=== PATIENT | female | born 1965 | race Caucasian/White ===

== ENCOUNTER 2023-02-06 21:17 | Observation (INO) | payer BC, MEDICARE ==
[2023-02-06] MEDS ORDERED: SODIUM CHLORIDE 0.9% 1,000 ML IV STA (21:33)
--- NOTE | 2023-02-06 21:54 | ED ---
Chest Pain HPI - General Chief Complaint: Chest Pain Stated Complaint: Chest pain,sob Time Seen by Provider: 02/06/23 21:32 Source: patient, RN notes reviewed, old records reviewed Mode of arrival: ambulatory Limitations: no limitations - History of Present Illness Initial Comments: This is a 57-year-old female to the emergency department for evaluation of severe chest pain for 3 days but worsening today which causes her to the emergency department. Patient presents today again for evaluation of the pain being worse than it was the last 3 days. Pain started 3 days ago rating to her back rating to her shoulders has been significant. Today with some shortness of breath and pain as well. No trauma no fevers no cough no congestion no other complaints. Patient has relatively no medical history aside from surgical history with family does have significant history of heart disease MD Complaint: chest pain, other -: days(s) Pain Location: left chest, other Severity: severe Severity scale (1-10): 8 Consistency: constant Improves With: nothing Worsens With: nothing Anginal Symptoms: diaphoresis, dyspnea, sense of impending doom Other Symptoms: cough, palpitations Treatments Prior to Arrival: none - Related Data Home Medications Medication Instructions Recorded Confirmed Cyclobenzaprine [Flexeril] 10 mg PO DAILY@209902/06/23 02/06/23 Meloxicam [Mobic] 15 mg PO DAILY@209902/06/23 02/06/23 Naratriptan HCl [Amerge] 2.5 mg PO DAILY PRN 02/06/23 02/06/23 Venlafaxine HCl ER [Effexor Xr] 225 mg PO DAILY@209902/06/23 02/06/23 acetaZOLAMIDE [Acetazolamide] 250 mg PO DAILY PRN 02/06/23 02/06/23 oxyCODONE-APAP 7.5-325MG [Percocet 1 tab PO Q6HR PRN 02/06/23 02/06/23 7.5-325 mg] rOPINIRole HCL [Requip] 2 mg PO DAILY@209902/06/23 02/06/23 Allergies Allergy/AdvReac Type Severity Reaction Status Date / Time morphine Allergy Nausea & Verified 02/06/23 22:01 Vomiting Review of Systems ROS Statement: Those systems with pertinent positive or pertinent negative responses have been documented in the HPI. ROS Other: All systems not noted in ROS Statement are negative. EKG Findings - EKG Comments: EKG Findings:: EKG is sinus 78 [place] 190 QRS 88 QTc 460 - EKG Results: EKG: interpreted by KERRY Past Medical History Past Medical History: No Reported History History of Any Multi-Drug Resistant Organisms: None Reported Past Surgical History: Hysterectomy, Joint Replacement, Orthopedic Surgery Past Psychological History: Anxiety, Depression Smoking Status: Current every day smoker Past Alcohol Use History: None Reported Past Drug Use History: None Reported General Exam Limitations: no limitations General appearance: alert, in no apparent distress Head exam: Present: atraumatic, normocephalic, normal inspection Eye exam: Present: normal appearance, PERRL, EOMI. Absent: scleral icterus, conjunctival injection, periorbital swelling ENT exam: Present: normal exam, mucous membranes moist Neck exam: Present: normal inspection. Absent: tenderness, meningismus, lymphadenopathy Respiratory exam: Present: normal lung sounds bilaterally. Absent: respiratory distress, wheezes, rales, rhonchi, stridor Cardiovascular Exam: Present: regular rate, normal rhythm, normal heart sounds. Absent: systolic murmur, diastolic murmur, rubs, gallop, clicks GI/Abdominal exam: Present: soft, normal bowel sounds. Absent: distended, tenderness, guarding, rebound, rigid Extremities exam: Present: normal inspection, full ROM, normal capillary refill. Absent: tenderness, pedal edema, joint swelling, calf tenderness Back exam: Present: normal inspection Neurological exam: Present: alert, oriented X3, CN II-XII intact Psychiatric exam: Present: normal affect, normal mood Skin exam: Present: warm, dry, intact, normal color. Absent: rash Course Vital Signs 02/06/23 02/06/23 02/06/23 21:20 22:30 23:00 Temperature 97.7 F Pulse Rate 94 64 68 Respiratory 18 16 17 Rate Blood Pressure 167/103 158/91 O2 Sat by Pulse 98 99 98 Oximetry - Reevaluation(s) Reevaluation #1: 02/07/23 00:54 Medical records reviewed Reevaluation #2: 02/07/23 00:54 Patient symptoms unchanged Patient still with chest pain Reevaluation #3: 02/07/23 00:54 Patient informed results and questions are answered Reevaluation #4: 02/07/23 00:55 Was pt. sent in by a medical professional or institution (NEEMA Young, VICE PRESIDENT RESEARCH, urgent care, hospital, or half-way...) When possible be specific @ -no Did you speak to anyone other than the patient for history (EMS, parent, family, police, friend...)? What history was obtained from this source @ -no Did you review nursing and triage notes (agree or disagree)? Why? @ -agree Are old charts reviewed (outside hosp., previous admission, EMS record, old EKG, old radiological studies, urgent care reports/EKG's, half-way records)? Report findings @ -yes Differential Diagnosis (chest pain, altered mental status, abdominal pain women, abdominal pain men, vaginal bleeding, weakness, fever, dyspnea, syncope, headache, dizziness, GI bleed, back pain, seizure, CVA, palpatations, mental health, musculoskeletal)? @ -prior EKG interpreted by me (3pts min.). @ -yes X-rays interpreted by me (1pt min.). @ -yes CT interpreted by me (1pt min.). @ -no U/S interpreted by me (1pt. min.). @ -no What testing was considered but not performed or refused? (CT, X-rays, U/S, labs)? Why? @ -none What meds were considered but not given or refused? Why? @ -none Did you discuss the management of the patient with other professionals (professionals i.e. NEEMA Young, VICE PRESIDENT RESEARCH, lab, RT, psych nurse, social and political studies professor, trial lawyer, teacher, principal gifts officer, employment case manager)? Give summary @ -no Was smoking cessation discussed for >3mins.? @ -no Was critical care preformed (if so, how long)? @ -no Were there social determinants of health that impacted care today? How? (Homelessness, low income, unemployed, alcoholism, drug addiction, transportation, low edu. Level, literacy, decrease access to med. care, [facility], rehab)? @ -none Was there de-escalation of care discussed even if they declined (Discuss DNR or withdrawal of care, Hospice)? DNR status @ -no What co-morbidities impacted this encounter? (DM, HTN, Smoking, COPD, CAD, Cancer, CVA, ARF, Chemo, Hep., AIDS, mental health diagnosis, sleep apnea, morbid obesity)? @ -none Was patient admitted / discharged? Hospital course, mention meds given and route, prescriptions, significant lab abnormalities, going to OR and other pertinent info. @ - Undiagnosed new problem with uncertain prognosis? @ -no Drug Therapy requiring intensive monitoring for toxicity (Heparin, Nitro, Insulin, Cardizem)? @ -no Were any procedures done? @ -no Diagnosis/symptom? @ - Acute, or Chronic, or Acute on Chronic? @ -Acute Uncomplicated (without systemic symptoms) or Complicated (systemic symptoms)? @ -Complicated Side effects of treatment? @ -no Exacerbation, Progression, or Severe Exacerbation? @ -exacerbation Poses a threat to life or bodily function? How? (Chest pain, [place], [place], pneumonia, PE, COPD, DKA, ARF, appy, cholecystitis, CVA, Diverticulitis, Homicidal, Suicidal, threat to staff... and all critical care pts) @ -yes Reevaluation #5: 02/07/23 00:55 MDifferential Chest Pain: Stable Angina, Unstable Angina, STEMI, NSTEMI Aortic Dissection, Pneumothorax, Musculoskeletal, Esophageal Spasm GERD, Cholecystitis, Pancreatitis, Zoster, this is not meant to be an all-inclusive list. - Consultations Consultation #1: Spoke with sound were agreeable to admit this patient Chest Pain MDM - MDM 57 female DF for evaluation today. Patient Dese for evaluation regards to chest pain. Patient has no finding a cause of chest pain here in the ER will be admitted for chest pain observation with family history of heart disease and persistent chest pain for 4 days with continued chest pain here in the ER Disposition Clinical Impression: Chest pain Disposition: ADMITTED IP TO THIS HOSP Condition: Undetermined Is patient prescribed a controlled substance at d/c from ED?: No Referrals: Nonstaff,Physician [REFERRING] - 1-2 days Time of Disposition: 01:00
--- NOTE | 2023-02-06 22:00 | XR ---
EXAMINATION TYPE: XR chest 1V portable DATE OF EXAM: 02/06/2023 9:56 PM CLINICAL INDICATION:Female, 57 years old with history of chest pain; COMPARISON: None TECHNIQUE: XR chest 1V portable Frontal view of the chest. FINDINGS: Lungs/Pleura: There is no evidence of pleural effusion, focal consolidation, or pneumothorax. Pulmonary vascularity: Unremarkable. Heart/mediastinum: Cardiomediastinal silhouette is unremarkable. Musculoskeletal: No acute osseous pathology. Other findings: None IMPRESSION: No acute cardiopulmonary disease/process.
[2023-02-06 22:18] LABS: Basophils % (A) 0 %; Eosinophils # (A) 0.3 k/uL (0-0.7); Eosinophils % (A) 3 %; HCT 39.9 % (34.0-46.0); HGB 14.1 gm/dL (11.4-16.0); Lymphocytes # (A) 3.7 k/uL (1.0-4.8); Lymphocytes % (A) 43 %; MCH 31.9 pg (25.0-35.0); MCHC 35.3 g/dL (31.0-37.0); MCV 90.4 fL (80.0-100.0); Mean Platelet Volume 7.4; Monocytes # (A) 0.5 k/uL (0-1.0); Monocytes % (A) 6 %; Neutrophils % (A) 46 %; Platelet Count 252 k/uL (150-450); RBC 4.41 m/uL (3.80-5.40); RDW 12.3 % (11.5-15.5); WBC 8.5 k/uL (3.8-10.6)
[2023-02-06 22:34] LABS: ALT 23 U/L (4-34); AST 21 U/L (14-36); African American GFR (CKD) >90 (>60 ml/min/1.73 sqM); Albumin 4.4 g/dL (3.5-5.0); Alkaline Phosphatase 103 U/L (38-126); Anion Gap 12 mmol/L; Blood Urea Nitrogen 16 mg/dL (7-17); Calcium 9.8 mg/dL (8.4-10.2); Carbon Dioxide 21 mmol/L (22-30); Chloride 105 mmol/L (98-107); Glucose 107 mg/dL (74-99); Lipase 139 U/L (23-300); Magnesium 2.2 mg/dL (1.6-2.3); Non-African American GFR(CKD) >90 (>60 ml/min/1.73 sqM); Potassium 4.3 mmol/L (3.5-5.1); Sodium 138 mmol/L (137-145); Total Bilirubin 0.3 mg/dL (0.2-1.3); Total Protein 7.2 g/dL (6.3-8.2)
[2023-02-06 22:41] LABS: NT-Pro-B-Type Natriuretic Pept 49 pg/mL
[2023-02-06 22:53] LABS: INR 0.9 (<1.2); Partial Thromboplastin Time 24.8 sec (22.0-30.0); Prothrombin Time 9.5 sec (9.0-12.0)
[2023-02-06] MEDS ORDERED: LABETALOL 5 MG/ML VIAL MDV IVP STA (23:19)
[2023-02-06] MEDS ORDERED: HYDROmorphone 0.5 MG/0.5 ML SYRINGE IVP STA (23:19)
--- NOTE | 2023-02-07 00:13 | CT ---
EXAMINATION TYPE: CT angio chest CT DLP: 641 mGycm, Automated exposure control for dose reduction was used. DATE OF EXAM: 02/06/2023 11:58 PM COMPARISON: Chest radiograph from same day. CLINICAL INDICATION:Female, 57 years old with history of cp; TECHNIQUE/CONTRAST: CTA scan of the thorax is performed without and with IV Contrast, patient injected with 100 mL of Iso eugene 370, MIP images are created and reviewed these are created on a separate workstation.. FINDINGS: Pulmonary Artery: There is no evidence for a filling defect within the pulmonary vasculature to sugge st acute pulmonary embolism. The pulmonary artery is of normal size. Lungs/Pleura: No evidence of focal consolidation, pleural effusion or pneumothorax. Airway: Large airways are patent. Heart: Heart is within normal limits for size. Vasculature: No evidence of aortic aneurysm. Mediastinum: No gross evidence of adenopathy. Musculoskeletal: No acute osseous abnormalities Soft Tissues: Bilateral breast implants appear intact. Lower neck: No significant findings. Upper Abdomen: No significant findings. IMPRESSION: No evidence of pulmonary embolism.
[2023-02-07] MEDS ORDERED: NALOXONE 0.4 MG/ML 1 ML VIAL IV PRN (00:49)
[2023-02-07] MEDS ORDERED: ONDANSETRON 4 MG/2 ML VIAL IVP PRN (00:49)
[2023-02-07] MEDS ORDERED: SODIUM CHLORIDE 0.9% 1,000 ML IV SCH (01:00)
[2023-02-07] MEDS: HYDROmorphone 0.5 MG/0.5 ML SYRINGE IVP PRN ×3 (04:09→18:43)
[2023-02-07] MEDS ORDERED: ATORVASTATIN 80 MG TAB PO STA (04:34)
[2023-02-07] MEDS ORDERED: ASPIRIN 325 MG TAB PO STA (04:34)
--- NOTE | 2023-02-07 04:35 | P.HPIM ---
History of Present Illness H&P Date: 02/07/23 Patient is a 57-year-old female with a PMH of tobacco abuse and depression who presents to the emergency room with complaints of chest discomfort. Patient reports that over the past 3-4 days, she has been experiencing intermittent substernal pleuritic chest pressure and tightness, somewhat sharp in nature, 6 out of 10 in excellent intensity, occurring every hour for several minutes at a time, radiating into her back, with no alleviating or exacerbating features aside from the pleuritic nature of the pain. Does report that 2 nights ago she had woken up with the pain and had dizziness with nausea and a single episode of nonbloody emesis. Since then, she reports some associated lightheadedness without further nausea, vomiting and she also denied experiencing diaphoresis, or palpitations. Denied fever, chills, cough. In the emergency room, a chest CTA was unremarkable. EKG had revealed sinus rhythm at [address]/T-wave changes noted as reviewed by me. Laboratory evaluation revealed troponin less than 0.012. ED documentation reviewed and case discussed with ED provider. Review of systems: Pertinent positives and negatives as discussed in HPI, a complete review of systems was performed and all other systems are negative. Physical examination: Vital signs reviewed General: non toxic, no distress, appears at stated age, normal weight Derm: no unusual rashes/lesions, warm Head: atraumatic, normocephalic, symmetric Eyes: EOMI, no lid lag, anicteric sclera, pupils equal round reactive to light ENT: Nose and ears atraumatic Neck: No cervical lymphadenopathy, trachea midline, supple Mouth: no lip lesion, mucus membranes moist Cardiovascular: S1S2 reg, no murmur, positive dorsalis pedis pulse bilateral, no edema Lungs: CTA bilateral, no rhonchi, no rales, no accessory muscle use Abdominal: soft, nontender to palpation, no guarding Ext: muscle strength 5 out of 5 in all 4 extremities grossly, no gross muscle atrophy, no contractures, Neuro: CN II-XI grossly intact, no gross focal neuro deficits Psych: Alert, oriented, appropriate affect Assessment: Atypical chest pain, rule out ACS Tobacco abuse Imaging: In the emergency room, a chest CTA was unremarkable. EKG had revealed sinus rhythm at [address]/T-wave changes noted as reviewed by me. Data Review: Laboratory evaluation revealed troponin less than 0.012. Plan: Cardiology consulted Cardiac monitoring Trend troponin Continue with aspirin, statin DVT prophylaxis: Lovenox Subq The patient is admitted with an anticipated less than 2 midnight stay for evalu ation of chest pain CODE STATUS: Full Code Discussed with: Patient Anticipated discharge place: Home Past Medical History Past Medical History: No Reported History History of Any Multi-Drug Resistant Organisms: None Reported Past Surgical History: Hysterectomy, Joint Replacement, Orthopedic Surgery Additional Past Surgical History / Comment(s): bilateral hip replacement and "carpal tunnel sugery" Past Anesthesia/Blood Transfusion Reactions: No Reported Reaction Past Psychological History: Anxiety, Depression Smoking Status: Current every day smoker Past Alcohol Use History: None Reported Past Drug Use History: None Reported Medications and Allergies Home Medications Medication Instructions Recorded Confirmed Type Cyclobenzaprine [Flexeril] 10 mg PO DAILY@209902/06/23 02/06/23 History Meloxicam [Mobic] 15 mg PO DAILY@209902/06/23 02/06/23 History Naratriptan HCl [Amerge] 2.5 mg PO DAILY PRN 02/06/23 02/06/23 History Venlafaxine HCl ER [Effexor Xr] 225 mg PO DAILY@209902/06/23 02/06/23 History acetaZOLAMIDE [Acetazolamide] 250 mg PO DAILY PRN 02/06/23 02/06/23 History oxyCODONE-APAP 7.5-325MG [Percocet 1 tab PO Q6HR PRN 02/06/23 02/06/23 History 7.5-325 mg] rOPINIRole HCL [Requip] 2 mg PO DAILY@209902/06/23 02/06/23 History Allergies Allergy/AdvReac Type Severity Reaction Status Date / Time morphine Allergy Nausea & Verified 02/06/23 22:01 Vomiting Physical Exam Vitals: Vital Signs Temp Pulse Pulse Resp BP BP Pulse Ox 02/07/23 04:07 97.7 F 71 18 157/80 99 02/07/23 02:30 72 18 157/85 96 02/07/23 01:30 68 20 172/90 98 02/07/23 00:30 70 16 162/95 93 L 02/06/23 23:30 165/97 02/06/23 23:27 70 31 H 165/97 97 02/06/23 23:00 68 17 158/91 98 02/06/23 22:30 64 16 167/103 99 02/06/23 21:20 97.7 F 94 18 98 Intake and Output 02/06/23 02/06/23 02/07/23 14:59 22:59 06:59 Other: Weight 67.132 kg 67.132 kg Results CBC & Chem 7: 02/06/23 22:09 02/06/23 22:09 Labs: Abnormal Lab Results - Last 24 Hours (Table) 02/06/23 Range/Units 22:09 Carbon Dioxide 21 L (22-30) mmol/L Glucose 107 H (74-99) mg/dL Thrombosis Risk Factor Assmnt - Choose All That Apply Any of the Below Risk Factors Present?: Yes Each Factor Represents 1 point: Age 41-60 years Other Risk Factors: No Other congenital or acquired thrombophilia - If yes, enter type in comment: No Thrombosis Risk Factor Assessment Total Risk Factor Score: 1 Thrombosis Risk Factor Assessment Level: Low Risk
[2023-02-07] MEDS: ASPIRIN 81 MG PO SCH (08:36)
[2023-02-07] MEDS: ENOXAPARIN 40 MG/0.4 ML SYRINGE SQ SCH (08:36)
[2023-02-07] MEDS: lisinopriL 10 MG TAB PO SCH (09:48)
--- NOTE | 2023-02-07 10:53 | P.CRDCN ---
History of Present Illness History of present illness: HISTORY OF PRESENT ILLNESS: This is a 57-year-old female with a past medical history significant for hyperlipidemia, nicotine dependence, and chronic pain. Patient does not follow with a supervisor [employer]. We have been asked to see the patient in consultation for chest pain. Patient examined at the bedside. Patient states on she began having pain in the middle of her chest. She states she felt nauseated and had one episode of emesis. She states that she got up and went to the kitchen to make some tea but then felt like she was going to pass out so she went laid on the couch for a little bit. She states since that time she's been having some intermittent chest discomfort. She does report the chest pain is worse with deep inspiration and chest wall palpation. She denies any shortness of breath. Denies any dizziness or lightheadedness. She does report a history of syncope many years ago after her hysterectomy. She was found to have elevated blood pressures during hospitalization with a systolic in the 160s. The patient states she checks her blood pressure at home and it is usually well-controlled. She is a current cigarette smoker and smokes half a pack per day. She denies any drug use including marijuana or alcohol use. * EKG reveals sinus mechanism with no signs of acute ischemia * Chest xray negative for acute process * Chest CT: Negative for pulmonary embolism * Current home cardiac medications include none REVIEW OF SYSTEMS: At the time of my exam: CONSTITUTIONAL: Denies fever or chills. HEENT: Denies blurred vision, vision changes, or eye pain. Denies hemoptysis CARDIOVASCULAR: Denies chest pain. Denies orthopnea. Denies PND. Denies palpitations RESPIRATORY: Denies shortness of breath. GASTROINTESTINAL: Denies abdominal pain. Denies nausea or vomiting. HEMATOLOGIC: Denies bleeding disorders. GENITOURINARY: Denies any blood in urine. SKIN: Denies pruitis. Denies rash. PHYSICAL EXAM: VITAL SIGNS: Reviewed. GENERAL: Well-developed in no acute distress. HEENT: Head is normocephalic. Pupils are equal, round. Sclerae anicteric. Mucous membranes of the mouth are moist. Neck supple. No JVD or thyromegaly LUNGS: Respirations even and unlabored. Lungs essentially clear to auscultation bilaterally. HEART: Regular rate and rhythm. S1 and S2 heard. ABDOMEN: Soft. Nondistended. Nontender. EXTREMITIES: Normal range of motion. No clubbing or cyanosis. Peripheral pulses intact. No lower extremity edema NEUROLOGIC: Awake and alert. Oriented x 3. ASSESSMENT: Chest pain, troponins negative 2 Hyperlipidemia, diet-controlled per patient Hypertension Nicotine dependence, patient smokes half a pack per day Chronic pain with chronic opioid use PLAN: An acute coronary event has been ruled out Obtain 2-D echo to assess cardiac structure and function Continue aspirin 81 mg daily Decrease atorvastatin to 40 mg at night. Obtain lipid panel Add lisinopril 10 mg daily for optimal blood pressure control Nothing by mouth at midnight Patient to undergo stress echocardiogram tomorrow Further recommendations pending patient's course Nurse practitioner note has been reviewed by physician. Signing provider agrees with the documented findings, assessment, and plan of care. Past Medical History Past Medical History: No Reported History History of Any Multi-Drug Resistant Organisms: None Reported Past Surgical History: Hysterectomy, Joint Replacement, Orthopedic Surgery Additional Past Surgical History / Comment(s): bilateral hip replacement and "carpal tunnel sugery" Past Anesthesia/Blood Transfusion Reactions: No Reported Reaction Past Psychological History: Anxiety, Depression Smoking Status: Current every day smoker Past Alcohol Use History: None Reported Past Drug Use History: None Reported Medications and Allergies Home Medications Medication Instructions Recorded Confirmed Type Cyclobenzaprine [Flexeril] 10 mg PO DAILY@209902/06/23 02/06/23 History Meloxicam [Mobic] 15 mg PO DAILY@209902/06/23 02/06/23 History Naratriptan HCl [Amerge] 2.5 mg PO DAILY PRN 02/06/23 02/06/23 History Venlafaxine HCl ER [Effexor Xr] 225 mg PO DAILY@209902/06/23 02/06/23 History acetaZOLAMIDE [Acetazolamide] 250 mg PO DAILY PRN 02/06/23 02/06/23 History oxyCODONE-APAP 7.5-325MG [Percocet 1 tab PO Q6HR PRN 02/06/23 02/06/23 History 7.5-325 mg] rOPINIRole HCL [Requip] 2 mg PO DAILY@209902/06/23 02/06/23 History Allergies Allergy/AdvReac Type Severity Reaction Status Date / Time morphine Allergy Nausea & Verified 02/06/23 22:01 Vomiting Physical Exam Vitals: Vital Signs Temp Pulse Pulse Pulse Resp BP BP 02/07/23 08:33 97.9 F 76 18 157/85 02/07/23 04:41 71 02/07/23 04:07 97.7 F 71 18 157/80 02/07/23 02:30 72 18 157/85 02/07/23 01:30 68 20 172/90 02/07/23 00:30 70 16 162/95 02/06/23 23:30 165/97 02/06/23 23:27 70 31 H 165/97 02/06/23 23:00 68 17 158/91 02/06/23 22:30 64 16 167/103 02/06/23 21:20 97.7 F 94 18 Pulse Ox 02/07/23 08:33 99 02/07/23 04:41 02/07/23 04:07 99 02/07/23 02:30 96 02/07/23 01:30 98 02/07/23 00:30 93 L 02/06/23 23:30 02/06/23 23:27 97 02/06/23 23:00 98 02/06/23 22:30 99 02/06/23 21:20 98 Intake and Output 02/06/23 02/07/23 02/07/23 22:59 06:59 14:59 Intake Total 10 Balance 10 Intake: IV 10 Invasive Line 1 10 Other: # Voids 1 Weight 67.132 kg 67.132 kg Results 02/06/23 22:09 02/06/23 22:09 Cardiac Enzymes 02/06/23 02/06/23 02/07/23 Range/Units 22:09 22:09 03:49 AST 21 (14-36) U/L Troponin I <0.012 <0.012 (0.000-0.034) ng/mL Coagulation 02/06/23 Range/Units 22:09 PT 9.5 (9.0-12.0) sec APTT 24.8 (22.0-30.0) sec CBC 02/06/23 Range/Units 22:09 WBC 8.5 (3.8-10.6) k/uL RBC 4.41 (3.80-5.40) m/uL Hgb 14.1 (11.4-16.0) gm/dL Hct 39.9 (34.0-46.0) % Plt Count 252 (150-450) k/uL Comprehensive Metabolic Panel 02/06/23 Range/Units 22:09 Sodium 138 (137-145) mmol/L Potassium 4.3 (3.5-5.1) mmol/L Chloride 105 (98-107) mmol/L Carbon Dioxide 21 L (22-30) mmol/L BUN 16 (7-17) mg/dL Creatinine 0.52 (0.52-1.04) mg/dL Glucose 107 H (74-99) mg/dL Calcium 9.8 (8.4-10.2) mg/dL AST 21 (14-36) U/L ALT 23 (4-34) U/L Alkaline Phosphatase 103 (38-126) U/L Total Protein 7.2 (6.3-8.2) g/dL Albumin 4.4 (3.5-5.0) g/dL Current Medications Generic Name Dose Route Start Last Admin Trade Name Freq PRN Reason Stop Dose Admin Aspirin 81 mg 02/07/23 09:00 02/07/23 08:36 Aspirin 81 Mg PO 81 mg DAILY ENEIDA Administration Atorvastatin Calcium 80 mg 02/07/23 21:00 Atorvastatin 80 Mg Tab PO HS [facility] Enoxaparin Sodium 40 mg 02/07/23 09:00 02/07/23 08:36 Enoxaparin 40 Mg/0.4 Ml Syringe SQ 40 mg DAILY ENEIDA Administration Hydromorphone HCl 0.5 mg 02/07/23 00:49 02/07/23 08:36 Hydromorphone 0.5 Mg/0.5 Ml Syringe IVP 0.5 mg Q3HR PRN Administration Moderate Pain (Scale 4 to 6) Naloxone HCl 0.2 mg 02/07/23 00:49 Naloxone 0.4 Mg/Ml 1 Ml Vial IV Q2M PRN Opioid Reversal Ondansetron HCl 4 mg 02/07/23 00:49 Ondansetron 4 Mg/2 Ml Vial IVP Q8HR PRN Nausea And Vomiting Intake and Output 02/06/23 02/07/23 02/07/23 22:59 06:59 14:59 Intake Total 10 Balance 10 Intake: IV 10 Invasive Line 1 10 Other: # Voids 1 Weight 67.132 kg 67.132 kg 02/06/23 22:09 02/06/23 22:09
[2023-02-07] MEDS ORDERED: SUMAtriptan succinate 50 MG TAB PO PRN (12:15)
[2023-02-07] MEDS: oxyCODONE-APAP 7.5-325MG 1 EACH TAB PO PRN ×2 (13:25→19:58)
[2023-02-07] MEDS: ATORVASTATIN 40 MG TAB PO SCH (19:58)
[2023-02-07] MEDS ORDERED: acetaZOLAMIDE 250 MG TAB PO PRN (20:59)
[2023-02-07] MEDS ORDERED: VENLAFAXINE HCL ER 75 MG CAP PO SCH (21:00)
[2023-02-07] MEDS ORDERED: ATORVASTATIN 80 MG TAB PO SCH (21:00)
[2023-02-07] MEDS ORDERED: CYCLOBENZAPRINE 10 MG TAB PO SCH (21:00)
[2023-02-07 23:03] LABS: Chol/HDL Ratio 6.52 Ratio; LDL Cholesterol,Calculated 134.8 mg/dL (0.0-131.0)
[2023-02-07 23:38] VITALS: RESP 18
[2023-02-08] MEDS: oxyCODONE-APAP 7.5-325MG 1 EACH TAB PO PRN ×3 (03:18→16:44)
[2023-02-08] MEDS: ENOXAPARIN 40 MG/0.4 ML SYRINGE SQ SCH (08:20)
[2023-02-08] MEDS: lisinopriL 10 MG TAB PO SCH (10:35)
[2023-02-08] MEDS: ASPIRIN 81 MG PO SCH (10:35)
[2023-02-08 12:44] LABS: Basophils % (A) 0 %; Eosinophils # (A) 0.1 k/uL (0-0.7); Eosinophils % (A) 1 %; HCT 40.5 % (34.0-46.0); HGB 13.3 gm/dL (11.4-16.0); Lymphocytes # (A) 2.2 k/uL (1.0-4.8); Lymphocytes % (A) 30 %; MCH 30.9 pg (25.0-35.0); MCHC 32.7 g/dL (31.0-37.0); MCV 94.6 fL (80.0-100.0); Mean Platelet Volume 7.3; Monocytes # (A) 0.4 k/uL (0-1.0); Monocytes % (A) 6 %; Neutrophils # (A) 4.5 k/uL (1.3-7.7); Neutrophils % (A) 62 %; Platelet Count 227 k/uL (150-450); RBC 4.29 m/uL (3.80-5.40); RDW 12.5 % (11.5-15.5); WBC 7.3 k/uL (3.8-10.6)
[2023-02-08 13:09] LABS: ALT 21 U/L (4-34); AST 20 U/L (14-36); African American GFR (CKD) >90 (>60 ml/min/1.73 sqM); Albumin 4.2 g/dL (3.5-5.0); Alkaline Phosphatase 90 U/L (38-126); Anion Gap 9 mmol/L; Blood Urea Nitrogen 14 mg/dL (7-17); Calcium 9.6 mg/dL (8.4-10.2); Carbon Dioxide 25 mmol/L (22-30); Chloride 105 mmol/L (98-107); Glucose 104 mg/dL (74-99); Lipase 71 U/L (23-300); Non-African American GFR(CKD) >90 (>60 ml/min/1.73 sqM); Phosphorus 4.1 mg/dL (2.5-4.5); Potassium 4.8 mmol/L (3.5-5.1); Sodium 139 mmol/L (137-145); Total Bilirubin 0.3 mg/dL (0.2-1.3); Total Protein 6.8 g/dL (6.3-8.2)
--- NOTE | 2023-02-08 14:24 | P.PN ---
Subjective Progress Note Date: 02/08/23 HISTORY OF PRESENT ILLNESS: This is a 57-year-old female with a past medical history significant for hy perlipidemia, nicotine dependence, and chronic pain. Patient does not follow with a fire eater. We have been asked to see the patient in consultation for chest pain. Patient examined at the bedside. Patient states on she began having pain in the middle of her chest. She states she felt nauseated and had one episode of emesis. She states that she got up and went to the kitchen to make some tea but then felt like she was going to pass out so she went laid on the couch for a little bit. She states since that time she's been having some intermittent chest discomfort. She does report the chest pain is worse with deep inspiration and chest wall palpation. She denies any shortness of breath. Denies any dizziness or lightheadedness. She does report a history of syncope many years ago after her hysterectomy. She was found to have elevated blood pressures during hospitalization with a systolic in the 160s. The patient states she checks her blood pressure at home and it is usually well-controlled. She is a current cigarette smoker and smokes half a pack per day. She denies any drug use including marijuana or alcohol use. * EKG reveals sinus mechanism with no signs of acute ischemia * Chest xray negative for acute process * Chest CT: Negative for pulmonary embolism * Current home cardiac medications include none 02/08 Patient states that she is feeling okay today. She has completed her stress test report is pending. She still states she has some pressure in her chest but not like it was before. She is mostly feeling tired and sleepy today. No chest wall tenderness. She does have pain with deep breathing. PHYSICAL EXAM: VITAL SIGNS: Reviewed. GENERAL: Well-developed in no acute distress. HEENT: Head is normocephalic. Pupils are equal, round. Sclerae anicteric. Mucous membranes of the mouth are moist. Neck supple. No JVD or thyromegaly LUNGS: Respirations even and unlabored. Lungs essentially clear to auscultation bilaterally. HEART: Regular rate and rhythm. S1 and S2 heard. ABDOMEN: Soft. Nondistended. Nontender. EXTREMITIES: Normal range of motion. No clubbing or cyanosis. Peripheral pulses intact. No lower extremity edema NEUROLOGIC: Awake and alert. Oriented x 3. ASSESSMENT: Chest pain, troponins negative 3 Hyperlipidemia, diet-controlled per patient Hypertension Nicotine dependence, patient smokes half a pack per day Chronic pain with chronic opioid use PLAN: An acute coronary event has been ruled out Obtain 2-D echo to assess cardiac structure and function Continue aspirin 81 mg daily Continue atorvastatin 40 mg at night. Continue lisinopril 10 mg daily for optimal blood pressure control Patient is status post stress echocardiogram. If stress echocardiogram and echocardiogram are unremarkable, patient is cleared for discharge home. Further recommendations pending patient's course Nurse practitioner note has been reviewed by physician. Signing provider agrees with the documented findings, assessment, and plan of care. Objective - Vital Signs Vital signs: Vital Signs Temp 98.3 F 02/08/23 12:00 Pulse 53 L 02/08/23 12:00 Resp 18 02/08/23 12:00 BP 115/73 02/08/23 12:00 Pulse Ox 97 02/08/23 12:00 FiO2 21 02/07/23 08:54 Intake & Output 02/07/23 02/08/23 02/08/23 18:59 06:59 18:59 Intake Total 1138 Balance 1138 Weight 68.9 kg Intake: IV 20 Invasive Line 1 20 Oral 1118 Other: # Voids 3 - Labs CBC & Chem 7: 02/08/23 11:45 02/08/23 11:45 Labs: Abnormal Lab Results - Last 24 Hours (Table) 02/07/23 Range/Units 10:24 Triglycerides 287.00 H (0.00-149.00) mg/dL Cholesterol 227.00 H (0.00-200.00) mg/dL LDL Cholesterol, Calc 134.8 H (0.0-131.0) mg/dL VLDL Cholesterol, Calc 57.40 H (5.00-40.00) mg/dL HDL Cholesterol 34.80 L (40.00-60.00) mg/dL
--- NOTE | 2023-02-08 14:31 | CA ---
Transthoracic Echo Report Name: Allen Boone Age: 57 Gender: F : 1965 Exam Date: 02/08/2023 09:39 Exam Location: [place] [facility] Ht (in): 65 Wt (lb): 148 Ordering Physician: Josette Beebe Attending/Referring Phys: [id number], Abiel Master Electrician Carmel Yanez [facility] Procedure CPT: Indications: LV function, CP Cardiac Hx: Technical Quality: Fair Contrast 1: Total Dose (mL): Contrast 2: Total Dose (mL): MEASUREMENTS (Male / Female) Normal Values 2D ECHO LV Diastolic Diameter PLAX 4.1 cm 4.2 - 5.9 / 3.9 - 5.3 cm LV Systolic Diameter PLAX 2.7 cm IVS Diastolic Thickness 1.1 cm 0.6 - 1.0 / 0.6 - 0.9 cm LVPW Diastolic Thickness 1.2 cm 0.6 - 1.0 / 0.6 - 0.9 cm LV Relative Wall Thickness 0.6 Ascending Aorta Diameter 3.3 cm M-MODE Aortic Root Diameter MM 3.1 cm LA Systolic Diameter MM 3.5 cm LA Ao Ratio MM 1.1 AV Cusp Separation MM 2.0 cm DOPPLER AV Peak Velocity 78.5 cm/s AV Peak Gradient 2.5 mmHg AV Mean Velocity 60.2 cm/s AV Mean Gradient 1.6 mmHg AV Velocity Time Integral 14.6 cm LVOT Peak Velocity 74.3 cm/s LVOT Peak Gradient 2.2 mmHg LVOT Velocity Time Integral 14.2 cm Mitral E Point Velocity 39.5 cm/s Mitral A Point Velocity 51.3 cm/s Mitral E to A Ratio 0.8 MV Deceleration Time 195.4 ms LV E' Lateral Velocity 7.5 cm/s Mitral E to LV E' Lateral Ratio 5.3 LV E' Septal Velocity 5.6 cm/s Mitral E to LV E' Septal Ratio 7.1 Right Atrial Pressure 3.0 mmHg FINDINGS Left Ventricle Mildly increased left ventricular wall thickness. Left ventricular cavity size normal. Normal left ventricular systolic function with no obvious regional wall motion abnormalities. Left ventricular ejection fraction is estimated at 55- 60%. Right Ventricle Normal right ventricular size. Unable to estimate the right ventricular systolic pressure. Right Atrium Normal right atrial size. Left Atrium Normal left atrial size. Mitral Valve Structurally normal mitral valve. Mitral valve thickened. No mitral regurgitation. Aortic Valve Trileaflet aortic valve. No aortic valve stenosis or regurgitation. Tricuspid Valve Structurally normal tricuspid valve. No tricuspid regurgitation. Pulmonic Valve Pulmonic valve not well visualized. Trace pulmonic regurgitation. Pericardium No pericardial effusion. Aorta Normal size aortic root and proximal ascending aorta. CONCLUSIONS LVH with preserved systolic function Previewed by: Dr. Nando Butts MD (Electronically Signed) Final Date: 08 February 2023 14:29
[2023-02-08 16:34] VITALS: BP 131/82; PULSE 85; TEMP 98.4
--- NOTE | 2023-02-08 18:07 | CA ---
Stress Echo Report Allen Boone Age: 57 Gender: F : 1965 Exam Date: 02/08/2023 09:49 Exam Location: [place] [facility] Ht (in): 65 Wt (lb): 151 Ordering Physician: Josette Beebe Referring Physician: [id number] Animal Physiologist: Carmel Yanez [facility] Technologist Procedure CPT: Indication: CP ICD-9 Codes: Rhythm: Patient History: Cardiac Medications: SEE CHART Medications in past 24 hours: Contrast: N/A Stress Results Protocol: Vamshi Total dose(mL): Exercise Duration (min:sec): 7:[address] Depression (mm): Angina Score: Hewitt Score: METS: 9.1 Resting HR: 93 Resting BP: 135 / 94 Peak HR: 146 Peak BP: 171 / 66 Max Predicted HR: 165 88 % Max Predicted HR Target HR: 140 Double Product: 87392 Stress Summary: BP Response: Reason for Termination: Reached target heart rate or work-load Cardiac Symptoms: SHORTNESS OF BREATH ECG Analysis Resting ECG: Stress ECG: Arrhythmia: Echo Analysis Resting Echo: Peak Echo Analysis: MEASUREMENTS (Male/Female) Normal Values CONCLUSIONS Average exercise capacity No ECG or echocardiographic evidence for ischemia Dr. Nando Butts MD (Electronically Signed) Final Date: 08 February 2023 18:07
[2023-02-08] MEDS: ATORVASTATIN 40 MG TAB PO SCH (18:43)
--- NOTE | 2023-02-08 18:54 | P.DS ---
Providers Date of admission: 02/07/23 00:49 Expected date of discharge: 02/08/23 Attending physician: Michael Mansfield MD Consults: 02/07/23 00:49 Consult Physician Routine Consulting Provider: Demian Brunner Consult Reason/Comments: cp Do you want consulting provider notified?: Yes Primary care physician: Florencio James MD Hospital Course: Discharge Diagnosis: Chest pain, acute coronary event ruled out. Hypertensive urgency, patient was started on lisinopril 10 mg daily and blood pressure is much better controlled. Hyperlipidemia with hypertriglyceridemia, patient discharged home on atorvastatin 40 mg daily. Hospital Course: Patient is a pleasant 57-year-old female with a past medical history of nicotine dependence and depression. She presented to the emergency department on 02/07/23 with a chief complaint of chest pain/discomfort. She underwent full evaluation in the emergency department. Vital signs upon arrival showing elevated blood pressure 167/103, heart rate 64, respiratory rate 16, temp 97.7F, SpO2 of 99% on room air. EKG was completed showing normal sinus rhythm at 78 bpm with no noted T wave or ST abnormality showing no signs of acute ischemia upon personal review and interpretation. Chest x-ray completed and negative for acute cardiopulmonary process. CTA chest completed negative for pulmonary emboli. Labs completed and reviewed. CBC and coagulation profile, and CMP were unremarkable. D-dimer negative at 0.30. Troponin negative at less than 0.012 with proBNP of 49. Patient was admitted under cardiac observation unit to our services. Cardiology was consulted. Troponins trended overnight all negative at less than 0.0123 draws. Hemoglobin A1c resulting in 5.7%. Lipid profile showing elevated triglycerides of 287, elevated cholesterol of 227, elevated LDL of 134.8, elevated VLDL of 57.40, and low HDL of 34.8. Patient reported for re solution of previous reported chest pain/discomfort. She was evaluated by cardiology recommending patient undergo stress testing. Echocardiogram completed revealing preserved EF of 55-60% with mild LVH otherwise no valvular or structural abnormalities reported. Exercise Stress test completed with reports of average exercise capacity and no ECG or echocardiographic evidence for ischemia. Patient cleared from cardiac perspective for discharge at this time. Medically, patient remains free from any complaints or concerns and is eager to return home. She was started on lisinopril 10 mg daily along with atorvastatin 40 mg daily. Blood pressure is much better controlled since starting lisinopril 10 mg daily. Upon discharge blood pressure 131/82, heart rate 85, respiratory rate 18, temp 98.4F, SpO2 of 97% on room air. Patient is medically stable for discharge and to follow up outpatient with PCP in 1-2 days and with sole sewer hand and 1 week. Physical exam: Patient seen and examined at bedside and reports being free from any further episodes of chest pain/discomfort or any other complaints at this time. Vital signs reviewed and stable. General: Nontoxic, no distress and appears stated age. Derm: Skin warm and dry, normal coloration for ethnicity. Head: Atraumatic, normocephalic and symmetric. Eyes: EOMs intact, no lid lag, and anicteric sclera Mouth: no lip lesions, mucus membranes moist Cardiovascular: regular rate and rhythm with normal S1S2, no murmur, positive posterior tibial pulses bilaterally, and cap refill < 2 seconds. Lungs: Respirations even, regular, and unlabored on room air. Lungs CTA bilaterally, no rhonchi, no rales, no wheezing, and no accessory muscle usage. Abdominal: soft, nontender to palpation, no guarding, no appreciable organomegaly Ext: ROM intact. No gross muscle atrophy, no edema, no contractures Neuro: Speech clear, face symmetrical and CN II-XII grossly intact with no noted focal neuro deficits Psych: Alert and oriented to person, place, time, and situation. Appropriate and pleasant affect. A total of 33 minutes of time were spent preparing this complex discharge summary. Pt was discharged on 02/08/23 at 6:42 PM. Patient was seen independently by Nurse Practitioner. This document was prepared using [employer] dictation software. Please allow for errors in hardness inspector while rare they do occur. Rishi Redding NP rendered care for this patient independently, reviewed the findings and plan as documented in the note above. I did not physically speak with or examine the patient on this date. Patient Condition at Discharge: Stable Plan - Discharge Summary Discharge Rx Participant: No New Discharge Prescriptions: New Atorvastatin [Lipitor] 40 mg PO HS 30 Days #30 tab lisinopriL [Zestril] 10 mg PO DAILY 30 Days #30 tab Continue Venlafaxine HCl ER [Effexor XR] 225 mg PO DAILY@2100 rOPINIRole HCL [Requip] 2 mg PO DAILY@2100 oxyCODONE-APAP 7.5-325MG [Percocet 7.5-325 mg] 1 tab PO Q6HR PRN PRN Reason: Pain acetaZOLAMIDE [Acetazolamide] 250 mg PO DAILY PRN PRN Reason: Edema Meloxicam [Mobic] 15 mg PO DAILY@2099 Cyclobenzaprine [Flexeril] 10 mg PO DAILY@2099 Naratriptan HCl [Amerge] 2.5 mg PO DAILY PRN PRN Reason: Migraine Headache Discharge Medication List Cyclobenzaprine [Flexeril] 10 mg PO DAILY@209902/06/23 [History] Meloxicam [Mobic] 15 mg PO DAILY@209902/06/23 [History] Naratriptan HCl [Amerge] 2.5 mg PO DAILY PRN 02/06/23 [History] Venlafaxine HCl ER [Effexor XR] 225 mg PO DAILY@209902/06/23 [History] acetaZOLAMIDE [Acetazolamide] 250 mg PO DAILY PRN 02/06/23 [History] oxyCODONE-APAP 7.5-325MG [Percocet 7.5-325 mg] 1 tab PO Q6HR PRN 02/06/23 [History] rOPINIRole HCL [Requip] 2 mg PO DAILY@209902/06/23 [History] Atorvastatin [Lipitor] 40 mg PO HS 30 Days #30 tab 02/08/23 [Rx] lisinopriL [Zestril] 10 mg PO DAILY 30 Days #30 tab 02/08/23 [Rx] Follow up Appointment(s)/Referral(s): Nando Butts MD [STAFF PHYSICIAN] - 1 Week (please call to set up appointment ) Nonstaff,Physician [REFERRING] - 1-2 days Patient Instructions/Handouts: Chest Pain (DC) Activity/Diet/Wound Care/Special Instructions: Activity: As tolerated. Take breaks as needed. Diet: Heart healthy and carb consistent diet. Avoid salts, or foods with hidden salts such as canned or boxed foods and frozen dinners. Extra salt makes your heart work harder and traps the fluid in your body for longer. Special Instructions: Take all of your medications as directed and remember to keep all of your doctor's appointments and follow-up as needed. Thank you for allowing us to participate in your care, it was truly a pleasure having you for our patient!!! Discharge Disposition: HOME SELF-CARE
== END 2023-02-08 18:55 | disposition home or self-care (01) ==
LOC: EC 21:17 → 6NMEDSUR 02-07 00:49 → 3SCARD 02-07 02:14
PROVIDERS: ADMIT Internal Medicine; ATTEND Internal Medicine
DX: R07.89 Other chest pain (principal); R06.02 Shortness of breath; I16.0 Hypertensive urgency; F17.210 Nicotine dependence, cigarettes, uncomplicated; F41.9 Anxiety disorder, unspecified; F32.A Depression, unspecified; Z79.1 Long term (current) use of non-steroidal anti-inflammatories (NSAID); Z79.899 Other long term (current) drug therapy; Z79.891 Long term (current) use of opiate analgesic; Z96.643 Presence of artificial hip joint, bilateral; G89.29 Other chronic pain; E78.1 Pure hyperglyceridemia; Z90.710 Acquired absence of both cervix and uterus
CPT/HCPCS: 96365; 96366; 96372 ×2; 99285; 36415; 94760 ×2; 93005; 93306; 93351; 85379; 83880; 80061; 80053 ×2; 83690 ×2; 83735 ×2; 84100; 84484 ×2; 85025 ×2; 85610; 85730; 83036; 71045; 71275; G0378 ×3; J1650 ×2; J1170; Q9967; J1920

== ENCOUNTER 2024-10-11 09:58 | Observation (INO) | payer BC, MEDICARE ==
[2024-10-11] MEDS: SODIUM CHLORIDE 0.9% 1,000 ML IV ONE (10:39)
[2024-10-11] MEDS: HYDROmorphone 0.5 MG/0.5 ML SYRINGE IVP STA ×3 (10:41→13:09)
[2024-10-11] MEDS: ONDANSETRON 4 MG/2 ML VIAL IVP STA (10:41)
[2024-10-11 11:13] LABS: ALT 21 U/L (4-34); AST 21 U/L (14-36); African American GFR (CKD) >90 (>60 ml/min/1.73 sqM); Albumin 5.1 g/dL (3.5-5.0); Alkaline Phosphatase 128 U/L (38-126); Anion Gap 14 mmol/L; Blood Urea Nitrogen 13 mg/dL (7-17); Calcium 10.7 mg/dL (8.4-10.2); Carbon Dioxide 23 mmol/L (22-30); Chloride 101 mmol/L (98-107); Glucose 111 mg/dL (74-99); Lipase 67 U/L (23-300); Non-African American GFR(CKD) >90 (>60 ml/min/1.73 sqM); Potassium 4.6 mmol/L (3.5-5.1); Sodium 138 mmol/L (137-145); Total Bilirubin 0.5 mg/dL (0.2-1.3); Total Protein 8.3 g/dL (6.3-8.2)
[2024-10-11 11:16] LABS: Basophils # (A) 0.04 10*3/uL (0.00-0.10); Basophils % (A) 0.2 %; Eosinophils # (A) 0.01 10*3/uL (0.04-0.35); Eosinophils % (A) 0.1 %; HCT 45.1 % (37.2-46.3); HGB 15.8 g/dL (12.0-15.0); Lymphocytes # (A) 3.24 10*3/uL (0.90-5.00); Lymphocytes % (A) 19.9 %; MCH 29.9 pg (27.0-32.0); MCV 85.4 fL (80.0-97.0); Mean Platelet Volume 9.1 fL (9.5-12.2); Monocytes # (A) 1.04 10*3/uL (0.20-1.00); Monocytes % (A) 6.4 %; Neutrophils # (A) 11.94 10*3/uL (1.80-7.70); Neutrophils % (A) 73.1 %; Platelet Count 408 10*3/uL (140-440); RBC 5.28 10*6/uL (4.10-5.20); RDW 12.3 % (11.5-14.5); WBC 16.32 10*3/uL (4.50-10.00)
--- NOTE | 2024-10-11 11:40 | ED ---
Abdominal Pain HPI - General Chief Complaint: Abdominal Pain Stated Complaint: abd pain, NV Time Seen by Provider: 10/11/24 10:02 Source: patient, family, RN notes reviewed Mode of arrival: ambulatory Limitations: no limitations - History of Present Illness Initial Comments: 58-year-old female presents emergency department complaint of right upper quadra nt abdominal pain, epigastric pain. Patient states that started 3 days ago states initially thought it would pass but has slightly worsened. She states she cannot tolerate the pain anymore nothing makes the pain feel better or worse she has not with nausea without vomiting no change in bowel habits no dysuria. - Related Data Home Medications Medication Instructions Recorded Confirmed Cyclobenzaprine [Flexeril] 10 mg PO DAILY@209902/06/23 02/06/23 Meloxicam [Mobic] 15 mg PO DAILY@209902/06/23 02/06/23 Naratriptan HCl [Amerge] 2.5 mg PO DAILY PRN 02/06/23 02/06/23 Venlafaxine HCl ER [Effexor XR] 225 mg PO DAILY@209902/06/23 02/06/23 acetaZOLAMIDE [Acetazolamide] 250 mg PO DAILY PRN 02/06/23 02/06/23 oxyCODONE-APAP 7.5-325MG [Percocet 1 tab PO Q6HR PRN 02/06/23 02/06/23 7.5-325 mg] rOPINIRole HCL [Requip] 2 mg PO DAILY@209902/06/23 02/06/23 Previous Rx's Medication Instructions Recorded Atorvastatin [Lipitor] 40 mg PO HS 30 Days #30 tab 02/08/23 lisinopriL [Zestril] 10 mg PO DAILY 30 Days #30 tab 02/08/23 Allergies Allergy/AdvReac Type Severity Reaction Status Date / Time morphine Allergy Nausea & Verified 02/06/23 22:01 Vomiting Review of Systems ROS Statement: Those systems with pertinent positive or pertinent negative responses have been documented in the HPI. ROS Other: All systems not noted in ROS Statement are negative. Past Medical History Past Medical History: No Reported History Additional Past Medical History / Comment(s): chronic back pain History of Any Multi-Drug Resistant Organisms: None Reported Past Surgical History: Hysterectomy, Joint Replacement, Orthopedic Surgery Additional Past Surgical History / Comment(s): bilateral hip replacement and "carpal tunnel sugery" Past Anesthesia/Blood Transfusion Reactions: No Reported Reaction Past Psychological History: Anxiety, Depression Smoking Status: Current every day smoker Past Alcohol Use History: None Reported Past Drug Use History: None Reported General Exam Limitations: no limitations General appearance: alert, in no apparent distress Head exam: Present: atraumatic, normocephalic, normal inspection Eye exam: Present: normal appearance, PERRL, EOMI. Absent: scleral icterus, conjunctival injection, periorbital swelling ENT exam: Present: normal exam, normal oropharynx, mucous membranes moist Neck exam: Present: normal inspection, full ROM. Absent: tenderness, meningismus, lymphadenopathy Respiratory exam: Present: normal lung sounds bilaterally. Absent: respiratory distress, wheezes, rales, rhonchi, stridor Cardiovascular Exam: Present: normal rhythm, tachycardia, normal heart sounds. Absent: systolic murmur, diastolic murmur, rubs, gallop, clicks GI/Abdominal exam: Present: soft, tenderness, normal bowel sounds. Absent: distended, guarding, rebound, rigid Back exam: Absent: CVA tenderness (R), CVA tenderness (L) Course Vital Signs 10/11/24 10:15 Temperature 98 F Pulse Rate 119 H Respiratory 20 Rate Blood Pressure 149/94 O2 Sat by Pulse 98 Oximetry Medical Decision Making - Medical Decision Making Was pt. sent in by a medical professional or institution (NEEMA Young, SPECIALTY DEVELOPMENT CONSULTANT, urgent care, hospital, or shelter...) When possible be specific @ -No Did you speak to anyone other than the patient for history (EMS, parent, family, police, friend...)? What history was obtained from this source @ -No Did you review nursing and triage notes (agree or disagree)? Why? @ -I reviewed and agree with nursing and triage notes Were old charts reviewed (outside hosp., previous admission, EMS record, old EKG, old radiological studies, urgent care reports/EKG's, shelter records)? Report findings @ -No old charts were reviewed Differential Diagnosis (chest pain, altered mental status, abdominal pain women, abdominal pain men, vaginal bleeding, weakness, fever, dyspnea, syncope, headache, dizziness, GI bleed, back pain, seizure, CVA, palpatations, mental health, musculoskeletal)? @ -Differential Abdominal Pain Women: Appendicitis, Cholecystitis, diverticulosis, ischemic bowel, pancreatitis, hepatitis, UTI, gastroenteritis, AAA, incarcerated hernia, bowel obstruction, constipation, inflammatory bowel, hepatitis, peptic ulcer disease, splenic infarction, perforated viscus, vulvitis, ovarian torsion, PID, kidney stone, p lacenta abruption, this is not meant to be an all-inclusive list EKG interpreted by me (3pts min.). @ -None X-rays interpreted by me (1pt min.). @ -None done CT interpreted by me (1pt min.). @ -CT abdomen pelvis showed no acute intra-abdominal process, chronic back changes, diverticulosis U/S interpreted by me (1pt. min.). @ -Ultrasound gallbladder negative for acute process What testing was considered but not performed or refused? (CT, X-rays, U/S, labs)? Why? @ -None What meds were considered but not given or refused? Why? @ -None Did you discuss the management of the patient with other professionals (professionals i.e. , PA, SPECIALTY DEVELOPMENT CONSULTANT, lab, RT, psych nurse, director of social media marketing, pcat instructor, teacher, parking officer, counseling case manager)? Give summary @ -Dr. Knutson regarding patient's symptoms, CT and ultrasound findings laboratory studies recommends admission no antibiotics at this time repeat exams laboratory studies and medicine discussed with Dr. Díaz Was smoking cessation discussed for >3mins.? @ -No Was critical care preformed (if so, how long)? @ -No Were there social determinants of health that impacted care today? How? (Homelessness, low income, unemployed, alcoholism, drug addiction, transpor tation, low edu. Level, literacy, decrease access to med. care, retirement, rehab)? @ -No Was there de-escalation of care discussed even if they declined (Discuss DNR or withdrawal of care, Hospice)? DNR status @ -No What co-morbidities impacted this encounter? (DM, HTN, Smoking, COPD, CAD, Cancer, CVA, ARF, Chemo, Hep., AIDS, mental health diagnosis, sleep apnea, morbid obesity)? @ -None Was patient admitted / discharged? Hospital course, mention meds given and route, prescriptions, significant lab abnormalities, going to OR and other pertinent info. @ -Admitted patient has intractable abdominal pain is required several doses of pain meds with worsening symptoms. Patient does have significant leukocytosis, lactic acidosis tachycardia. Patient be admitted for repeat serial exams and laboratory studies. Undiagnosed new problem with uncertain prognosis? @ -No Drug Therapy requiring intensive monitoring for toxicity (Heparin, Nitro, Insulin, Cardizem)? @ -No Were any procedures done? @ -No Diagnosis/symptom? @ -Intractable abdominal pain, leukocytosis lactic acidosis Acute, or Chronic, or Acute on Chronic? @ -Acute Uncomplicated (without systemic symptoms) or Complicated (systemic symptoms)? @ -Complicated Side effects of treatment? @ -No Exacerbation, Progression, or Severe Exacerbation? @ -No Poses a threat to life or bodily function? How? (Chest pain, USA, DC, pneumonia, PE, COPD, DKA, ARF, appy, cholecystitis, CVA, Diverticulitis, Homicidal, Suicidal, threat to staff... and all critical care pts) @ -No - Lab Data Result diagrams: 10/11/24 10:36 10/11/24 10:36 Lab Results 10/11/24 10/11/24 10/11/24 Range/Units 10:36 10:36 10:36 WBC 16.32 H (4.50-10.00) 10*3/uL RBC 5.28 H (4.10-5.20) 10*6/uL Hgb 15.8 H (12.0-15.0) g/dL Hct 45.1 (37.2-46.3) % MCV 85.4 (80.0-97.0) fL MCH 29.9 (27.0-32.0) pg MCHC 35.0 (32.0-37.0) g/dL Plt Count 408 (140-440) 10*3/uL MPV 9.1 L (9.5-12.2) fL Immature Gran % (Auto) 0.3 % Neutrophils % 73.1 % Lymphocytes % 19.9 % Monocytes % 6.4 % Eosinophils % 0.1 % Basophils % 0.2 % Immature Gran # 0.05 H (0.00-0.04) 10*3/uL Neutrophils # 11.94 H (1.80-7.70) 10*3/uL Lymphocytes # 3.24 (0.90-5.00) 10*3/uL Monocytes # 1.04 H (0.20-1.00) 10*3/uL Eosinophils # 0.01 L (0.04-0.35) 10*3/uL Basophils # 0.04 (0.00-0.10) 10*3/uL Sodium 138 (137-145) mmol/L Potassium 4.6 (3.5-5.1) mmol/L Chloride 101 (98-107) mmol/L Carbon Dioxide 23 (22-30) mmol/L Anion Gap 14 mmol/L BUN 13 (7-17) mg/dL Creatinine 0.52 (0.52-1.04) mg/dL Est GFR (CKD-EPI)AfAm >90 (>60 ml/min/1.73 sqM) Est GFR (CKD-EPI)NonAf >90 (>60 ml/min/1.73 sqM) Glucose 111 H (74-99) mg/dL Lactic Ac Sepsis Rflx Plasma Lactic Acid Tyler 2.2 H* (0.7-2.0) mmol/L Calcium 10.7 H (8.4-10.2) mg/dL Total Bilirubin 0.5 (0.2-1.3) mg/dL AST 21 (14-36) U/L ALT 21 (4-34) U/L Alkaline Phosphatase 128 H (38-126) U/L Total Protein 8.3 H (6.3-8.2) g/dL Albumin 5.1 H (3.5-5.0) g/dL Lipase 67 (23-300) U/L Urine Color Urine Appearance (Clear) Urine pH (5.0-8.0) Ur Specific [place] (1.001-1.035) Urine Protein (Negative) Urine Glucose (UA) (Negative) Urine Ketones (Negative) Urine Blood (Negative) Urine Nitrite (Negative) Urine Bilirubin (Negative) Urine Urobilinogen (<2.0) mg/dL Ur Leukocyte Esterase (Negative) Urine RBC (0-5) /hpf Urine WBC (0-5) /hpf Ur Squamous Epith Cells (0-4) /hpf Urine Bacteria (None) /hpf 10/11/24 10/11/24 Range/Units 11:19 11:57 WBC (4.50-10.00) 10*3/uL RBC (4.10-5.20) 10*6/uL Hgb (12.0-15.0) g/dL Hct (37.2-46.3) % MCV (80.0-97.0) fL MCH (27.0-32.0) pg MCHC (32.0-37.0) g/dL Plt Count (140-440) 10*3/uL MPV (9.5-12.2) fL Immature Gran % (Auto) % Neutrophils % % Lymphocytes % % Monocytes % % Eosinophils % % Basophils % % Immature Gran # (0.00-0.04) 10*3/uL Neutrophils # (1.80-7.70) 10*3/uL Lymphocytes # (0.90-5.00) 10*3/uL Monocytes # (0.20-1.00) 10*3/uL Eosinophils # (0.04-0.35) 10*3/uL Basophils # (0.00-0.10) 10*3/uL Sodium (137-145) mmol/L Potassium (3.5-5.1) mmol/L Chloride (98-107) mmol/L Carbon Dioxide (22-30) mmol/L Anion Gap mmol/L BUN (7-17) mg/dL Creatinine (0.52-1.04) mg/dL Est GFR (CKD-EPI)AfAm (>60 ml/min/1.73 sqM) Est GFR (CKD-EPI)NonAf (>60 ml/min/1.73 sqM) Glucose (74-99) mg/dL Lactic Ac Sepsis Rflx Y Plasma Lactic Acid Tyler (0.7-2.0) mmol/L Calcium (8.4-10.2) mg/dL Total Bilirubin (0.2-1.3) mg/dL AST (14-36) U/L ALT (4-34) U/L Alkaline Phosphatase (38-126) U/L Total Protein (6.3-8.2) g/dL Albumin (3.5-5.0) g/dL Lipase (23-300) U/L Urine Color Colorless Urine Appearance Clear (Clear) Urine pH 6.5 (5.0-8.0) Ur Specific [place] 1.006 (1.001-1.035) Urine Protein Trace H (Negative) Urine Glucose (UA) Negative (Negative) Urine Ketones Negative (Negative) Urine Blood Large H (Negative) Urine Nitrite Negative (Negative) Urine Bilirubin Negative (Negative) Urine Urobilinogen <2.0 (<2.0) mg/dL Ur Leukocyte Esterase Negative (Negative) Urine RBC 7 H (0-5) /hpf Urine WBC 2 (0-5) /hpf Ur Squamous Epith Cells 3 (0-4) /hpf Urine Bacteria Rare H (None) /hpf Disposition Clinical Impression: Intractable abdominal pain, Leukocytosis Disposition: ADMITTED IP TO THIS HOSP Condition: Fair Referrals: Florencio James MD [Primary Care Provider] - 1-2 days Time of Disposition: 14:12
--- NOTE | 2024-10-11 11:46 | US ---
EXAMINATION TYPE: US gallbladder DATE OF EXAM: 10/11/2024 COMPARISON: CT 02/06/2023 CLINICAL INDICATION: Female, 58 years old with history of pain; Abdominal pain x3 days TECHNIQUE: Grayscale and color Doppler imaging of the right upper quadrant. FINDINGS: EXAM MEASUREMENTS: Liver Length: 14.2 cm Gallbladder Wall: 0.2 cm CBD: 0.4 cm, color Doppler imaging was utilized to isolate the common bile duct for measurement. Right Kidney: 11.0 x 4.8 x 4.9 cm HOSPITALITY COORDINATOR NOTES: Pancreas: portions visualized wnl, tail obscured by overlying bowel gas Liver: wnl, increased echogenicity Gallbladder: wnl, no stones seen Evidence for sonographic Khanna's sign: No CBD: wnl Right Kidney: No hydronephrosis or masses seen Exam limited by overlying bowel gas. IMPRESSION: Hepatic steatosis without suspicious observation. [facility], , 10/11/2024 11:44 AM
[2024-10-11 12:21] LABS: Appearance,Urine Clear (Clear); Bacteria,Urine Rare /hpf; Bilirubin,Urine Negative (Negative); Blood,Urine Large (Negative); Color,Urine Colorless; Glucose,Urine (UA) Negative (Negative); Ketones,Urine Negative (Negative); Leukocyte Esterase,Urine Negative (Negative); Nitrite,Urine Negative (Negative); PH, Urine 6.5 (5.0-8.0); Protein,Urine Trace (Negative); RBC,Urine 7 /hpf (0-5); Specific Gravity,Urine 1.006 (1.001-1.035); Squamous Epithelial Cell,Urine 3 /hpf (0-4); Urobilinogen,Urine <2.0 mg/dL (<2.0); WBC,Urine 2 /hpf (0-5)
[2024-10-11] MEDS: KETOROLAC 15 MG/ML 1 ML VIAL IVP STA (13:09)
--- NOTE | 2024-10-11 13:11 | CT ---
EXAMINATION TYPE: CT abdomen pelvis w con DATE OF EXAM: 10/11/2024 12:41 PM COMPARISON: CT abdomen pelvis most recent from CLINICAL INDICATION: Female, 58 years old with history of abd pain; 3 days sharp pain epigastric to l ower abdomen pain, N/V/D TECHNIQUE: Axial CT abdomen pelvis w con;Sagittal and coronal reformats were created on a separate w orkstation. Contrast used:100 ml mL of Isovue 300 with IV Contrast, (none if empty) Oral contrast used: without Oral Contrast (none if empty) CT DLP: 792.6 mGycm, Automated exposure control for dose reduction was used. FINDINGS: LOWER CHEST: Bilateral breast implants are partially visualized and appear intact and the visualized [id number]. ABDOMEN LIVER: Unremarkable GALLBLADDER AND BILE DUCTS: Unremarkable. PANCREAS: Unremarkable. SPLEEN: Unremarkable. ADRENAL GLANDS: Unremarkable. KIDNEYS AND URETERS: No evidence of hydronephrosis or obstructing renal calculus. The ureters are unr emarkable. PELVIS BLADDER: No evidence for wall thickening or mass given limitations of exam. REPRODUCTIVE: Unremarkable. ABDOMEN & PELVIS STOMACH AND BOWEL: No evidence of bowel obstruction. Few scattered colonic diverticula. PERITONEUM/RETROPERITONEUM: No evidence of pneumoperitoneum or free fluid. VASCULATURE: No evidence of aortic aneurysm. MUSCULOSKELETAL: No acute osseous abnormalities. Streak artifact from hip arthroplasties limit evalua tion the pelvis. Grade 1 anterolisthesis of L4 and L5 with disc bulge and moderate spinal canal steno sis. Appendix is normal. LYMPH NODES: No gross evidence for lymphadenopathy. SOFT TISSUE/ABDOMINAL WALL: Fat-containing umbilical hernia. IMPRESSION: 1. No evidence for acute intra-abdominal process. 2. Grade 1 anterolisthesis of L4 and L5 with disc bulge and moderate spinal canal stenosis. 3. Colonic diverticulosis. [facility], , 10/11/2024 1:09 PM
[2024-10-11] MEDS ORDERED: NALOXONE 0.4 MG/ML 1 ML VIAL IV PRN (14:12)
[2024-10-11] MEDS ORDERED: ONDANSETRON 4 MG/2 ML VIAL IVP PRN (14:23)
[2024-10-11] MEDS: SODIUM CHLORIDE 0.9% 1,000 ML IV SCH (15:05)
[2024-10-11] MEDS ORDERED: hydrALAZINE HCL 20 MG/ML 1 ML VIAL IVP PRN (15:55)
[2024-10-11] MEDS: HYDROmorphone 0.5 MG/0.5 ML SYRINGE IVP PRN (16:27)
[2024-10-11 16:33] LABS: Alcohol <10 mg/dL; C Reactive Protein 0.5 mg/dL (<1.0)
[2024-10-11 17:05] LABS: Influenza A Not Detected (Not Detectd); Influenza B Not Detected (Not Detectd); RSV Not Detected (Not Detectd)
[2024-10-11 17:48] LABS: Amphetamine Screen,Urine Not Detected (NotDetected); Barbiturate Screen,Urine Not Detected (NotDetected); Benzodiazepines Screen,Urine Not Detected (NotDetected); Cocaine Screen,Urine Not Detected (NotDetected); Methadone Screen, Urine Not Detected (NotDetected); Opiate Screen,Urine Detected (NotDetected); Oxycodone Screen, Urine Detected (NotDetected); Phencyclidine Screen,Urine Not Detected (NotDetected); Tricyclic Antidepressant,Urine Not Detected (NotDetected); Urn Cannabinoid Scrn Not Detected (NotDetected)
[2024-10-11 21:04] LABS: Glucose,Whole Blood 105 mg/dL (70-110)
[2024-10-12] MEDS ORDERED: methocarbamoL 750 MG TAB PO PRN (00:23)
[2024-10-12] MEDS ORDERED: SUMAtriptan succinate 50 MG TAB PO PRN (00:23)
--- NOTE | 2024-10-12 01:00 | HP ---
HISTORY AND PHYSICAL CHIEF COMPLAINT: Abdominal pain, nausea, and vomiting. HISTORY OF PRESENT ILLNESS: This is a 58-year-old woman with a past medical history of chronic back pain, hysterectomy, anxiety, and depression, living in a cottage in [place], not feeling well for the past few days, with upper abdominal pain and the patient also had some nausea and vomiting. The patient's white count is elevated. There is no history of fever, rigor, or chills at this time. Ultrasound of the gallbladder did not show any acute abnormality. PAST MEDICAL HISTORY: Chronic back pain, anxiety, depression, and smoking. Rest of the history and chart is also reviewed. HOME MEDICATIONS: Requip. Dose and rest of medications reviewed. ALLERGIES: Morphine. FAMILY HISTORY: No history of heart disease or strokes in the family. SOCIAL HISTORY: History of smoking. REVIEW OF SYSTEMS: A 14-point review of systems negative except as mentioned earlier. PHYSICAL EXAMINATION: VITAL SIGNS: Pulse is 119, blood pressure 149/94, and respirations 20. HEENT: Conjunctivae are normal. NECK: No JVD. CARDIOVASCULAR: S1, S2. RESPIRATIONS: Breath sounds diminished at the bases. Few rhonchi. No crackles. ABDOMEN: Soft. Minimal tenderness in the epigastrium. No guarding and no mass palpable. No McBurney's tenderness. Bowel sounds are present. No ascites. LEGS: No edema. NERVOUS SYSTEM: No focal deficit. LABORATORY DATA: WBC 16.32. Other labs are noted. ASSESSMENT: 1. Abdominal pain, nausea, and vomiting, possibly acute cholecystitis. 2. Elevated white blood cells. 3. Elevated lactic acid, present on admission. 4. History of chronic back pain. 5. History of anxiety and depression. 6. History of nicotine dependence. RECOMMENDATIONS AND DISCUSSION: This 58-year-old woman presented with multiple complex medical issues. At this time, I recommend to continue the current symptomatic treatment. Otherwise, empiric antibiotics, surgical evaluation, possibly EGD, HIDA scan. Guarded prognosis because of multiple complex medical issues. Further recommendations to follow. See orders for details. MMODL / IJN: [id number] /
[2024-10-12] MEDS: PANTOPRAZOLE 40 MG/10 ML VIAL IV SCH (01:32)
[2024-10-12] MEDS: VENLAFAXINE HCL ER 75 MG CAP PO SCH (01:33)
[2024-10-12 08:15] LABS: BUN/Creat Ratio 21.67 Ratio (12.00-20.00); Chloride 103 mmol/L (96-109); Glucose 102 mg/dL (70-110); Potassium 4.2 mmol/L (3.5-5.5); Sodium 136 mmol/L (135-145)
[2024-10-12 08:16] LABS: ALT 18 U/L (8-44); AST 16 U/L (13-35); Albumin/Globulin Ratio 1.74 Ratio (1.60-3.17); Alkaline Phosphatase 113 U/L (41-126); Calcium 9.2 mg/dL (8.7-10.3); Carbon Dioxide 22.6 mmol/L (21.6-31.8); Globulin 2.3 g/dL (1.6-3.3); Total Bilirubin 0.3 mg/dL (0.3-1.2); Total Protein 6.3 g/dL (6.2-8.2)
[2024-10-12 08:22] LABS: Basophils # (A) 0.03 X 10*3/uL (0.00-0.10); Basophils % (A) 0.3 %; Eosinophils # (A) 0.07 X 10*3/uL (0.04-0.35); Eosinophils % (A) 0.8 %; HCT 40.5 % (37.2-46.3); HGB 13.3 g/dL (12.0-15.0); Lymphocytes # (A) 2.87 X 10*3/uL (0.90-5.00); Lymphocytes % (A) 32.1 %; MCH 29.7 pg (27.0-32.0); MCHC 32.8 g/dL (32.0-37.0); MCV 90.4 FL (80.0-97.0); Mean Platelet Volume 9.5 FL (9.5-12.2); Monocytes # (A) 0.91 X 10*3/uL (0.20-1.00); Monocytes % (A) 10.2 %; NRBC Per 100 WBC 0 X 10*3/uL (0.00-0.01); Neutrophils # (A) 5.04 X 10*3/uL (1.80-7.70); Neutrophils % (A) 56.3 %; Platelet Count 293 X 10*3/uL (140-440); RBC 4.48 X 10*6/uL (4.10-5.20); RDW 12.6 % (11.5-14.5); WBC 8.95 X 10*3/uL (4.50-10.00)
[2024-10-12] MEDS ORDERED: PANTOPRAZOLE 40 MG/10 ML VIAL IV SCH (09:00)
--- NOTE | 2024-10-12 09:32 | NM ---
EXAMINATION TYPE: NM hepatobiliary w CCK DATE OF EXAM: 10/12/2024 9:08 AM COMPARISON: Ultrasound most recent on 10/11/2024 CT abdomen pelvis most recent from 10/11/2024. CLINICAL INDICATION:Female, 58 years old with history of intractable abd pain; TECHNIQUE: The patient was given 5.2 mCi of Technetium 99m-Mebrofenin as a radiotracer and multiple scintigraphic images were obtained of the abdomen. Gallbladder function was also assessed after the a dministration of 1.29 mcg of Kinevac (cholecystokinin) and additional scintigraphic images were obtai esperanza of the abdomen. A region of interest was drawn over the gallbladder and a timing activity curve w as generated. The gallbladder ejection fraction was calculated. Kinevac: 1.29 mcg FINDINGS: Normal uptake of radiotracer was identified within the liver with excretion into the hepatic and comm on biliary ducts within 10 min. There was normal progressive washout of the liver over the course of the study. Radiotracer uptake within the gallbladder at 10 minutes as well as small bowel activity wa s identified at 52 minutes. Maximum calculated gallbladder ejection fraction is: 71% at 29minutes (Normal gallbladder ejection fraction is > 35%) IMPRESSION: 1. Normal hepatobiliary scan. 2. Normal ejection fraction. [facility], , 10/12/2024 9:30 AM
[2024-10-12] MEDS: MELOXICAM 7.5 MG TAB PO SCH (10:18)
--- NOTE | 2024-10-12 10:43 | P.GSCN ---
History of Present Illness Consult date: 10/12/24 History of present illness: CHIEF COMPLAINT: Abdominal pain HISTORY OF PRESENT ILLNESS: This is a 58-year-old female who presented the hospital with complaints of epigastric abdominal pain x 3 days. Patient reports Wednesday evening she had a lots of emesis. And then Wednesday and Wednesday she had significant epigastric abdominal pain that did not improve. She therefore came into the ER for further evaluation. She has had no further vomiting. Last bowel movement was 2 days ago. She had a CT scan abdomen pelvis that reported diverticulosis gallbladder ultrasound had reported fatty liver. She is scheduled for a HIDA scan today. Past surgical history does include a hysterectomy. Patient did have elevated white count and lactic acid on admission. Surgical service consulted for abdominal pain. Patient denies being on any blood thinners. She is a smoker. She does report her pain is less then when she was admitted. Patient takes NSAIDs daily. PAST MEDICAL HISTORY: See below PAST SURGICAL HISTORY: See below MEDICATIONS: See below ALLERGIES: See below SOCIAL HISTORY: No illicit drug use. REVIEW OF SYSTEMS: CONSTITUTIONAL: Denies fever or chills. HEENT: Denies blurred vision, vision changes, or eye pain. Denies hemoptysis CARDIOVASCULAR: Denies chest pain or pressure. RESPIRATORY: No shortness of breath. GASTROINTESTINAL: See HPI for pertinent findings HEMATOLOGIC: Denies bleeding disorders. GENITOURINARY: Denies any blood in urine or increased urinary frequency. SKIN: Denies pruitis. Denies rash. PHYSICAL EXAM: VITAL SIGNS: Reviewed GENERAL: Well-developed in no acute distress. HEENT: No sclera icterus. Extraocular movements grossly intact. Moist buccal mucosa. Head is atraumatic, normocephalic. No nasal drainage. ABDOMEN: Soft. Nondistended. Epigastric tenderness with palpation. No rebound or guarding noted. NEUROLOGIC: Alert and oriented. Cranial nerves II through XII grossly intact. LABORATORY DATA: WBC 16.32 down to 8.95 Hgb 13.3 platelets 293 Sodium 136 potassium 4.2 creatinine 0.6 Lactic acid 2.2-2.0 Total bilirubin 0.3 AST 16 ALT 18 alk phos 128 down to 113 Troponin negative lipase 67 Influenza, RSV and COVID-19 not detected IMAGING: Gallbladder ultrasound reports hepatic steatosis without suspicious observation CT scan abdomen and pelvis reports no evidence for acute intra-abdominal proces s. Colonic diverticulosis. Grade 1 anterolisthesis at L4-L5 with disc bulge and moderate spinal canal stenosis HIDA scan normal, EF 71% ASSESSMENT: 1. Epigastric abdominal pain with vomiting 2. Daily NSAID use PLAN: - Patient scheduled for EGD tomorrow with Dr. Diop - Continue PPI - Hold Mobic Physician Icu Manager note has been reviewed by physician. Signing provider agrees with the documented findings, assessment, and plan of care. I have personally seen and examined the patient, reviewed the MEDIA PRODUCTION MANAGER /PAs history, exam and MDM and agree with the assessment and plan as written. Based on total visit time, I have performed more than 50% of the visit. As above: Patient with epigastric pain rating to the right upper quadrant. On exam tender in both the right upper and left upper quadrant. Symptoms much improved today. Had episodes of vomiting a few days ago. Ultrasound, CAT scan, HIDA scan reviewed. No definite abnormalities present. Tolerating regular diet. Options discussed with patient. Could proceed with upper endoscopy tomorrow or discharge with outpatient follow-up. Past Medical History Past Medical History: No Reported History Additional Past Medical History / Comment(s): chronic back pain History of Any Multi-Drug Resistant Organisms: None Reported Past Surgical History: Hysterectomy, Joint Replacement, Orthopedic Surgery Additional Past Surgical History / Comment(s): bilateral hip replacement and "carpal tunnel sugery" Past Anesthesia/Blood Transfusion Reactions: No Reported Reaction Past Psychological History: Anxiety, Depression Smoking Status: Current every day smoker Past Alcohol Use History: None Reported Past Drug Use History: None Reported Medications and Allergies Home Medications Medication Instructions Recorded Confirmed Type Meloxicam [Mobic] 15 mg PO DAILY 02/06/23 10/11/24 History Naratriptan HCl [Amerge] 2.5 mg PO DAILY PRN 02/06/23 10/11/24 History Venlafaxine HCl ER [Effexor XR] 225 mg PO DAILY 02/06/23 10/11/24 History rOPINIRole HCL [Requip] 2 mg PO HS 02/06/23 10/11/24 History Gabapentin [Neurontin] 300 mg PO HS 10/11/24 10/11/24 History methocarbamoL [Robaxin-750] 750 mg PO Q8H PRN 10/11/24 10/11/24 History oxyCODONE-APAP 10-325MG [Percocet 1 tab PO Q6H 10/11/24 10/11/24 History 10-325 mg] Allergies Allergy/AdvReac Type Severity Reaction Status Date / Time morphine Allergy Nausea & Verified 10/11/24 16:17 Vomiting Surgical - Exam Vital Signs Temp Pulse Resp BP Pulse Ox 98 F 119 H 20 149/94 98 10/11/24 10:15 10/11/24 10:15 10/11/24 10:15 10/11/24 10:15 10/11/24 10:15 Results - Labs 10/12/24 04:30 10/12/24 04:30 Abnormal Lab Results - Last 24 Hours (Table) 10/11/24 10/11/24 10/11/24 Range/Units 10:36 10:36 10:36 WBC 16.32 H (4.50-10.00) 10*3/uL RBC 5.28 H (4.10-5.20) 10*6/uL Hgb 15.8 H (12.0-15.0) g/dL MPV 9.1 L (9.5-12.2) fL Immature Gran # 0.05 H (0.00-0.04) 10*3/uL Neutrophils # 11.94 H (1.80-7.70) 10*3/uL Monocytes # 1.04 H (0.20-1.00) 10*3/uL Eosinophils # 0.01 L (0.04-0.35) 10*3/uL ESR (0-30) mm/Hr BUN/Creatinine Ratio (12.00-20.00) Ratio Glucose 111 H (74-99) mg/dL Plasma Lactic Acid Tyler 2.2 H* (0.7-2.0) mmol/L Calcium 10.7 H (8.4-10.2) mg/dL Alkaline Phosphatase 128 H (38-126) U/L Total Protein 8.3 H (6.3-8.2) g/dL Albumin 5.1 H (3.5-5.0) g/dL Urine Protein (Negative) Urine Blood (Negative) Urine RBC (0-5) /hpf Urine Bacteria (None) /hpf Urine Opiates Screen (NotDetected) Ur Oxycodone Screen (NotDetected) 10/11/24 10/11/24 10/11/24 Range/Units 11:57 11:57 16:14 WBC (4.50-10.00) 10*3/uL RBC (4.10-5.20) 10*6/uL Hgb (12.0-15.0) g/dL MPV (9.5-12.2) fL Immature Gran # (0.00-0.04) 10*3/uL Neutrophils # (1.80-7.70) 10*3/uL Monocytes # (0.20-1.00) 10*3/uL Eosinophils # (0.04-0.35) 10*3/uL ESR 37 H (0-30) mm/Hr BUN/Creatinine Ratio (12.00-20.00) Ratio Glucose (74-99) mg/dL Plasma Lactic Acid Tyler (0.7-2.0) mmol/L Calcium (8.4-10.2) mg/dL Alkaline Phosphatase (38-126) U/L Total Protein (6.3-8.2) g/dL Albumin (3.5-5.0) g/dL Urine Protein Trace H (Negative) Urine Blood Large H (Negative) Urine RBC 7 H (0-5) /hpf Urine Bacteria Rare H (None) /hpf Urine Opiates Screen Detected H (NotDetected) Ur Oxycodone Screen Detected H (NotDetected) 10/12/24 Range/Units 04:30 WBC (4.50-10.00) 10*3/uL RBC (4.10-5.20) 10*6/uL Hgb (12.0-15.0) g/dL MPV (9.5-12.2) fL Immature Gran # (0.00-0.04) 10*3/uL Neutrophils # (1.80-7.70) 10*3/uL Monocytes # (0.20-1.00) 10*3/uL Eosinophils # (0.04-0.35) 10*3/uL ESR (0-30) mm/Hr BUN/Creatinine Ratio 21.67 H (12.00-20.00) Ratio Glucose (74-99) mg/dL Plasma Lactic Acid Tyler (0.7-2.0) mmol/L Calcium (8.4-10.2) mg/dL Alkaline Phosphatase (38-126) U/L Total Protein (6.3-8.2) g/dL Albumin (3.5-5.0) g/dL Urine Protein (Negative) Urine Blood (Negative) Urine RBC (0-5) /hpf Urine Bacteria (None) /hpf Urine Opiates Screen (NotDetected) Ur Oxycodone Screen (NotDetected) Diabetes panel 10/11/24 10/12/24 Range/Units 10:36 04:30 Sodium 138 136 (137-145) mmol/L Potassium 4.6 4.2 (3.5-5.1) mmol/L Chloride 101 103 (98-107) mmol/L Carbon Dioxide 23 22.6 (22-30) mmol/L BUN 13 13.0 (7-17) mg/dL Creatinine 0.52 0.6 (0.52-1.04) mg/dL Glucose 111 H 102 (74-99) mg/dL Calcium 10.7 H 9.2 (8.4-10.2) mg/dL AST 21 16 (14-36) U/L ALT 21 18 (4-34) U/L Alkaline Phosphatase 128 H 113 (38-126) U/L Total Protein 8.3 H 6.3 (6.3-8.2) g/dL Albumin 5.1 H 4.0 (3.5-5.0) g/dL Calcium panel 10/11/24 10/12/24 Range/Units 10:36 04:30 Calcium 10.7 H 9.2 (8.4-10.2) mg/dL Albumin 5.1 H 4.0 (3.5-5.0) g/dL Pituitary panel 10/11/24 10/12/24 Range/Units 10:36 04:30 Sodium 138 136 (137-145) mmol/L Potassium 4.6 4.2 (3.5-5.1) mmol/L Chloride 101 103 (98-107) mmol/L Carbon Dioxide 23 22.6 (22-30) mmol/L BUN 13 13.0 (7-17) mg/dL Creatinine 0.52 0.6 (0.52-1.04) mg/dL Glucose 111 H 102 (74-99) mg/dL Calcium 10.7 H 9.2 (8.4-10.2) mg/dL Adrenal panel 10/11/24 10/12/24 Range/Units 10:36 04:30 Sodium 138 136 (137-145) mmol/L Potassium 4.6 4.2 (3.5-5.1) mmol/L Chloride 101 103 (98-107) mmol/L Carbon Dioxide 23 22.6 (22-30) mmol/L BUN 13 13.0 (7-17) mg/dL Creatinine 0.52 0.6 (0.52-1.04) mg/dL Glucose 111 H 102 (74-99) mg/dL Calcium 10.7 H 9.2 (8.4-10.2) mg/dL Total Bilirubin 0.5 0.3 (0.2-1.3) mg/dL AST 21 16 (14-36) U/L ALT 21 18 (4-34) U/L Alkaline Phosphatase 128 H 113 (38-126) U/L Total Protein 8.3 H 6.3 (6.3-8.2) g/dL Albumin 5.1 H 4.0 (3.5-5.0) g/dL
[2024-10-12 12:12] VITALS: BP 144/85; PULSE 89; RESP 20; TEMP 98.5
[2024-10-12] MEDS ORDERED: BUTALB/APAP/CAFF 50-325-40MG TAB PO PRN (15:14)
--- NOTE | 2024-10-12 20:45 | PN ---
PROGRESS NOTE DATE OF SERVICE: 10/12/2024 SUBJECTIVE: This 58-year-old woman was admitted with abdominal pain, possible acute cholecystitis, improved significantly. The HIDA scan has been negative. Dr. Diop is following the patient closely. PHYSICAL EXAMINATION: VITAL SIGNS: Pulse 89, blood pressure 140/86, and respirations 20. CHEST: Clear to auscultation. CARDIOVASCULAR: S1, S2. ABDOMEN: Soft, mild diffuse discomfort. No guarding. No mass. LABORATORY DATA: Reviewed. ASSESSMENT: 1. Abdominal pain, nausea, vomiting, possible acute cholecystitis, possible acute gastritis, present on admission. 2. Elevated WBC, improved. 3. Elevated lactic acid, improved. 4. Chronic back pain. 5. Anxiety, depression, history of nicotine dependence. RECOMMENDATIONS: Recommend to continue current management and treatment. Otherwise, we will monitor the patient closely, closely follow with Surgery. Continue the antibiotics. Guarded prognosis. Further recommendations to follow. MMTODDL / JESSICAN: [id number] /
[2024-10-12] MEDS ORDERED: GABAPENTIN 300 MG CAP PO SCH (21:00)
== END 2024-10-12 16:22 | disposition home or self-care (01) ==
LOC: EC 09:58 → 6NMEDSUR 15:42 → 5NMEDONC 18:38
PROVIDERS: ADMIT Hospitalist; ATTEND Hospitalist
DX: R10.13 Epigastric pain (principal); R10.11 Right upper quadrant pain; R11.2 Nausea with vomiting, unspecified; D72.829 Elevated white blood cell count, unspecified; E87.20 Acidosis, unspecified; F32.A Depression, unspecified; F41.9 Anxiety disorder, unspecified; G89.29 Other chronic pain; M54.9 Dorsalgia, unspecified; K57.30 Diverticulosis of large intestine without perforation or abscess without bleeding; K76.0 Fatty (change of) liver, not elsewhere classified; Z79.1 Long term (current) use of non-steroidal anti-inflammatories (NSAID); Z79.899 Other long term (current) drug therapy; Z90.710 Acquired absence of both cervix and uterus; Z96.643 Presence of artificial hip joint, bilateral; Z88.5 Allergy status to narcotic agent; Z87.891 Personal history of nicotine dependence; Z79.891 Long term (current) use of opiate analgesic
CPT/HCPCS: 96376 ×3; 96375 ×2; 96361; 96365; 99285; 36415; 80053 ×2; 85652; 83605; 83690; 84484; 85025 ×2; 86140; 81001; 87040; 80306; 80320; 87086; 87636; 76705; 74177; 78227; G0378 ×3; A9537; J2405; J2805; J0696 ×2; J1885; J1171 ×2; Q9967; J2470